=== PATIENT | female | born 1990 | race Caucasian/White ===

== ENCOUNTER 2017-07-22 14:00 | Emergency (ER) | payer OTHER ==
[2017-07-22] MEDS ORDERED: NS 1,000 ML IV ONE (14:44)
--- NOTE | 2017-07-22 14:45 | EDPHY ---
H & P Stated Complaint: saw health center today, dx uti, feeling worse Time Seen by Provider: 07/22/17 14:26 HPI/ROS: CHIEF COMPLAINT: Flank pain, dysuria, diagnosed with UTI today HISTORY OF PRESENT ILLNESS: The patient presents the emergency department with weakness, flank pain, subjective fevers and general malaise. She was diagnosed with a urinary tract infection at the [facility] today. She was started on Bactrim at that time. She presents to the ED with worsening symptoms. She does report a prior history of pyelonephritis x5. She did require hospitalization for 10 days approximately 5 years ago. The patient does have a history of chronic upper back pain. She denies any acute abdominal pain, vaginal bleeding or discharge. The patient reports moderate to severe bilateral flank pain. REVIEW OF SYSTEMS: A comprehensive 10 point review of systems is otherwise negative aside from elements mentioned in the history of present illness. Source: Patient - Personal History LMP (Females 10-55): IUD In Place Current Tetanus Diphtheria and Acellular Pertussis (TDAP): Yes - Medical/Surgical History Hx Asthma: No Hx Chronic Respiratory Disease: No Hx Diabetes: No Hx Cardiac Disease: No Hx Renal Disease: No Hx Cirrhosis: No Hx Alcoholism: No Hx HIV/AIDS: No Hx Splenectomy or Spleen Trauma: No Other PMH: back pain, fibromyagia - Social History Smoking Status: Never smoked - Physical Exam Exam: General Appearance: Alert, no distress Eyes: Pupils equal and round no pallor or injection ENT, Mouth: Mucous membranes moist Respiratory: There are no retractions, lungs are clear to auscultation Cardiovascular: Regular rate and rhythm Gastrointestinal: Abdomen is soft and nontender, no masses, bowel sounds normal Back: Bilateral CVA tenderness Neurological: A&O, normal motor function, normal sensory exam, normal cranial nerves Skin: Warm and dry, no rashes Musculoskeletal: Neck is supple nontender Extremities: symmetrical, full range of motion Constitutional: Initial Vital Signs Temperature (C) 36.7 C 07/22/17 14:09 Heart Rate 59 L 07/22/17 14:09 Respiratory Rate 18 07/22/17 14:09 Blood Pressure 153/94 H 07/22/17 14:09 O2 Sat (%) 97 07/22/17 14:09 O2 Delivery Mode Room Air Allergies/Adverse Reactions: bromfenac [From Duract] Allergy (Verified 07/22/17 14:07) Home Medications: Medication Instructions Recorded Celebrex 07/22/17 Cephalexin [Keflex] 500 mg PO QID #40 cap 07/22/17 Gabapentin 07/22/17 Ondansetron Odt [Zofran Odt] 4 mg PO Q4PRN PRN #20 tab 07/22/17 Phenazopyridine HCl 07/22/17 Sulfamethox/Tmp 800/160 mg 07/22/17 oxyCODONE/APAP 5/325 [Percocet 1 - 2 tab PO Q6-8PRN PRN #20 tab 07/22/17 5/325 (RX)] traMADol 07/22/17 Medical Decision Making ED Course/Re-evaluation: The patient presents to the ED with mild pyelonephritis. The patient had an IV established. She received 1 g of ceftriaxone. A urine analysis demonstrates evidence of infection. She has no evidence of renal failure. She received 2 L of IV fluid rehydration. I re-evaluated the patient several times over a 3 hr period. I re-evaluated the patient at 4:45 p.m.. She is feeling much better would like to be discharged home I will recommend that she began Keflex instead of Bactrim , Percocet and Zofran as needed. She is advised to return to the ED for markedly worsening symptoms or other concerns. Differential Diagnosis: Differential diagnosis considered includes cystitis, pyelonephritis, mesenteric adenitis - Data Points Laboratory Results: Laboratory Results 07/22/17 14:35 07/22/17 14:35 07/22/17 07/22/17 07/22/17 15:25 14:35 14:35 WBC RBC Hgb Hct MCV MCH MCHC RDW Plt Count MPV Neut % (Auto) Lymph % (Auto) [place] % (Auto) Eos % (Auto) Baso % (Auto) Nucleat RBC Rel Count Absolute Neuts (auto) Absolute Lymphs (auto) Absolute Monos (auto) Absolute Eos (auto) Absolute Basos (auto) Absolute Nucleated RBC Immature Gran % Immature Gran # Sodium 132 mEq/L L mEq/L (135-145) Potassium 4.2 mEq/L mEq/L (3.5-5.2) Chloride 100 mEq/L mEq/L (97-110) Carbon Dioxide 21 mEq/l L mEq/l (22-31) Anion Gap 11 mEq/L mEq/L (8-16) BUN 11 mg/dL mg/dL (7-23) Creatinine 0.6 mg/dL mg/dL (0.6-1.0) Estimated GFR > 60 Glucose 84 mg/dL mg/dL (70-100) Calcium 8.7 mg/dL mg/dL (8.5-10.4) Beta HCG, Qual NEGATIVE Urine Color JAN Urine Appearance CLEAR Urine pH 5.0 (5.0-7.5) Ur Specific [place] 1.003 (1.002-1.030) Urine Protein NEGATIVE (NEGATIVE) Urine Ketones NEGATIVE (NEGATIVE) Urine Blood 1+ H (NEGATIVE) Urine Nitrate POSITIVE H (NEGATIVE) Urine Bilirubin NEGATIVE (NEGATIVE) Urine Urobilinogen 4.0 EU H EU (0.2-1.0) Ur Leukocyte Esterase 1+ H (NEGATIVE) Urine RBC 5-10 /hpf H /hpf (0-3) Urine WBC 25-50 /hpf H /hpf (0-3) Ur Epithelial Cells TRACE /lpf /lpf (NONE-1+) Urine Bacteria TRACE /hpf H /hpf (NONE SEEN) Urine Glucose NEGATIVE (NEGATIVE) 07/22/17 14:35 WBC 14.23 10^3/uL H 10^3/uL (3.80-9.50) RBC 3.98 10^6/uL L 10^6/uL (4.18-5.33) Hgb 13.4 g/dL g/dL (12.6-16.3) Hct 36.4 % L % (38.0-47.0) MCV 91.5 fL fL (81.5-99.8) MCH 33.7 pg pg (27.9-34.1) MCHC 36.8 g/dL H g/dL (32.4-36.7) RDW 13.2 % % (11.5-15.2) Plt Count 202 10^3/uL 10^3/uL (150-400) MPV 9.1 fL fL (8.7-11.7) Neut % (Auto) 73.1 % % (39.3-74.2) Lymph % (Auto) 18.4 % % (15.0-45.0) [place] % (Auto) 5.8 % % (4.5-13.0) Eos % (Auto) 1.9 % % (0.6-7.6) Baso % (Auto) 0.4 % % (0.3-1.7) Nucleat RBC Rel Count 0.0 % % (0.0-0.2) Absolute Neuts (auto) 10.40 10^3/uL H 10^3/uL (1.70-6.50) Absolute Lymphs (auto) 2.62 10^3/uL 10^3/uL (1.00-3.00) Absolute Monos (auto) 0.83 10^3/uL H 10^3/uL (0.30-0.80) Absolute Eos (auto) 0.27 10^3/uL 10^3/uL (0.03-0.40) Absolute Basos (auto) 0.05 10^3/uL 10^3/uL (0.02-0.10) Absolute Nucleated RBC 0.00 10^3/uL 10^3/uL (0-0.01) Immature Gran % 0.4 % % (0.0-1.1) Immature Gran # 0.06 10^3/uL 10^3/uL (0.00-0.10) Sodium Potassium Chloride Carbon Dioxide Anion Gap BUN Creatinine Estimated GFR Glucose Calcium Beta HCG, Qual Urine Color Urine Appearance Urine pH Ur Specific [place] Urine Protein Urine Ketones Urine Blood Urine Nitrate Urine Bilirubin Urine Urobilinogen Ur Leukocyte Esterase Urine RBC Urine WBC Ur Epithelial Cells Urine Bacteria Urine Glucose Medications Given: Discontinued Medications Sodium Chloride (Ns) 1,000 mls @ 0 mls/hr IV ONCE ONE PRN Reason: Wide Open Stop: 07/22/17 14:45 Last Admin: 07/22/17 14:50 Dose: 1,000 mls Ibuprofen (Motrin) 600 mg PO EDNOW ONE Stop: 07/22/17 16:39 Last Admin: 07/22/17 16:42 Dose: 600 mg Departure - Departure Disposition: Home, Routine, Self-Care Clinical Impression: Pyelonephritis Condition: Good Instructions: Urinary Tract Infection in Women (ED) Additional Instructions: 1. I recommend taking Keflex instead of Bactrim. 2. Percocet as needed for pain. 3. Zofran as needed for nausea. 4. Return to the ED for markedly worsening pain, fever, vomiting or other concerns. Referrals: TONY Garcia,. [Clinic] - As per Instructions Prescriptions: Cephalexin [Keflex] 500 mg PO QID #40 cap Ondansetron Odt [Zofran Odt] 4 mg PO Q4PRN PRN #20 tab PRN Reason: For Nausea oxyCODONE/APAP 5/325 [Percocet 5/325 (RX)] 1 - 2 tab PO Q6-8PRN PRN #20 tab PRN Reason: for pain
[2017-07-22 15:00] LABS: PLATELET COUNT 202 10^3/uL (150-400)
[2017-07-22] MEDS ORDERED: cefTRIAXone 1 GM in STERILE WATER INJ 10 ML IV ONE (15:50)
[2017-07-22] MEDS ORDERED: IBUPROFEN 600 MG TAB PO ONE (16:38)
[2017-07-22 17:37] VITALS: BP 126/69; PULSE 88; RESP 16; TEMP 97.9; O2SAT 97
== END 2017-07-22 17:35 | disposition home or self-care (01) ==
DX: N12 Tubulo-interstitial nephritis, not specified as acute or chronic (principal)
CPT/HCPCS: 96374; J0696